=== PATIENT | female | born 1945 | race Caucasian/White ===

== ENCOUNTER → 2017-04-07 | Outpatient (CLI) | payer OTHER | LOC: BMCIMAGING 12:03 | PROVIDERS: ATTEND Internal Medicine | DX: R05 Cough (principal) ==

== ENCOUNTER → 2017-07-04 | Outpatient (CLI) | payer OTHER | LOC: BMCIMAGING 11:26 → EDSTATUS 11:27 | PROVIDERS: ATTEND Internal Medicine | DX: Z09 Encounter for follow-up examination after completed treatment for conditions other than malignant neoplasm (principal); J18.9 Pneumonia, unspecified organism ==

== ENCOUNTER → 2017-08-30 | Outpatient (CLI) | payer OTHER | LOC: BMCIMAGING 09:39 | PROVIDERS: ATTEND Internal Medicine | DX: J40 Bronchitis, not specified as acute or chronic (principal); M51.34 Other intervertebral disc degeneration, thoracic region ==

== ENCOUNTER → 2018-07-27 | Outpatient (CLI) | payer OTHER | LOC: BMCIMAGING 13:13 | PROVIDERS: ATTEND Internal Medicine | DX: D25.1 Intramural leiomyoma of uterus (principal); N88.8 Other specified noninflammatory disorders of cervix uteri; Z78.0 Asymptomatic menopausal state ==

== ENCOUNTER → 2018-10-05 | Outpatient (CLI) | payer OTHER | LOC: FIMAGING 14:28 | PROVIDERS: ATTEND Internal Medicine | DX: Z12.31 Encounter for screening mammogram for malignant neoplasm of breast (principal) ==

== ENCOUNTER → 2018-10-12 | Outpatient (CLI) | payer OTHER | LOC: BMCIMAGING 10:37 | PROVIDERS: ATTEND Internal Medicine | DX: N63.21 Unspecified lump in the left breast, upper outer quadrant (principal) ==

== ENCOUNTER → 2018-10-31 | Outpatient (CLI) | payer OTHER, MEDICARE | LOC: FIMAGING 07:24 ==

== ENCOUNTER → 2018-11-08 | Outpatient (CLI) | payer OTHER, MEDICARE | LOC: FIMAGING 09:29 ==

== ENCOUNTER → 2018-11-15 | Outpatient (CLI) | payer OTHER, MEDICARE | LOC: FIMAGING 08:00 ==

== ENCOUNTER 2018-11-23 07:34 | Outpatient (CLI) | payer OTHER, MEDICARE | END 2018-11-23 12:15 | disposition home or self-care (01) | LOC: FIMAGING 07:34 ==